=== PATIENT | male | born 1985 | race Caucasian/White ===

== ENCOUNTER 2017-03-10 22:55 | Emergency (ER) | payer SELFPAY ==
--- NOTE | 2017-03-10 23:35 | ER NURSING DOCUMENTATION ---
Nurse's Notes [facility] ([place], [place]) Name:Mal Diaz Age:31 yrs Sex:Male :1985 Arrival Date:03/10/2017 Time:22:53 Bed2 Private MD:No PCP, Identified Diagnosis:Conjunctival Foreign Body Presentation: 03/10 22:53 Transition of care: patient was not received from another setting of care. nf 22:53 Acuity: GALINDO 4 nf 22:53 Method Of Arrival: Private Vehicle nf 22:55 Presenting complaint: Patient states: pt states he got glass in right eye while at work bw2 just prior to arrival. 22:59 Notified ED Physician of patient's arrival and CC Dr. Valiente notified. bw2 Triage Assessment: 22:57 General: Appears in no apparent distress. Pain: Complains of pain in right eye. EENT: bw2 Eyes with foreign body noted in right upper eyelid. 23:33 General: Behavior is appropriate for age. bw2 Historical: - Allergies: No known drug Allergies; - Tetanus: unknown. - Ebola Screening: : Patient negative for fever greater than or equal to 101.5 degrees Fahrenheit, and additional compatible Ebola Virus Disease symptoms. Patient denies exposure to infectious person. Patient denies travel to an Ebola-affected area in the 21 days before illness onset. . - Immunization history: Flu Vaccine None. - Social history: Smoking status: Patient uses tobacco products, current every day smoker. Screenin:59 Infectious Disease Risk None. Abuse screen: Denies threats or abuse. Nutritional bw2 screening: No deficits noted. Assessment: 22:59 See Triage Assessment done by same RN. bw2 Vital Signs: 22:58 BP 158 / 72; Pulse 99; Resp 18; Temp 97.8(O); Pulse Ox 97% on R/A; Weight 77.11 kg; bw2 Height 5 ft. 10 in. (177.80 cm); Pain 6/10; 22:58 Body Mass Index 24.39 (77.11 kg, 177.80 cm) bw2 ED Course: 22:53 Patient arrived in ED. em3 22:53 Triage completed. nf 22:55 No PCP, Identified is Private Physician. em3 22:55 Ivonne Noriega is Primary Nurse. bw2 22:59 Valuables Remains with patient. bw2 23:10 Bonifacio Valiente MD is Attending Physician. co 23:28 Galen Arnold MD is Referral Physician. co 03/11 00:31 Primary Nurse role handed off by Ivonne Noriega co Administered Medications: 03/10 23:03 Drug: Alcaine Drops 0.5 % 1 drops; Route: Ophthalmic; Site: right eye; 23:06 Drug: Adacel 0.5 ml; {Paralegal Specialist: [facility]. Exp: 12/23/2039. Lot #: [id number]. } bw2 Route: IM; Site: left deltoid; 03/11 00:32 Drug: Fluorescein Strip 1 strip; Route: Ophthalmic; Site: right eye; co Outcome: 03/10 23:28 Discharge ordered by MD. co 23:33 Discharged to home ambulatory, with significant other. [facility] 23:33 Condition: good 23:33 Discharge Assessment: Patient awake, alert and oriented x 3. No cognitive and/or functional deficits noted. Patient verbalized understanding of disposition instructions. 23:33 Discharge instructions given to patient, Instructed on discharge instructions, follow up and referral plans. 23:34 Patient left the ED. [facility] 03/11 00:32 Patient left the ED. co Signatures: Anna Huber RN RN Bonifacio Ware MD MD co Reynold Costa 3 Ivonne Noriega 2
--- NOTE | 2017-03-10 23:35 | ER PHYSICIAN DOCUMENTATION ---
Physician Documentation [facility] Name:Mal Diaz Age:31 yrs Sex:Male :1985 Arrival Date:03/10/2017 Time:22:53 Bed2 Private MD:No PCP, Identified ED Bonifacio Eagle Disposition: 03/10/17 23:28 Discharged to Home/Self Care. Impression: Conjunctival Foreign Body. - Condition is Good. - Discharge Instructions: CONJUNCTIVAL FOREIGN BODY, Resolved. - Medical Reconciliation form form. - Follow up: Galen Arnold MD; When: As needed; Reason: Worsening of condition. - Problem is new. - Symptoms have improved. HPI: 03/10 23:25 This 31 yrs old Male presents to ER via Private Vehicle with complaints of sc Foreign Body In Eye. 23:25 The patient is experiencing foreign body sensation, The patient sustained glass chips sc from shelf at work. Onset: The symptom(s)/episode began/occurred just prior to arrival. Duration: the symptoms are continuous. Associated signs and symptoms: Pertinent positives: None. Historical: - Allergies: No known drug Allergies; - Tetanus: unknown. - Ebola Screening: : Patient negative for fever greater than or equal to 101.5 degrees Fahrenheit, and additional compatible Ebola Virus Disease symptoms. Patient denies exposure to infectious person. Patient denies travel to an Ebola-affected area in the 21 days before illness onset. . - Immunization history: Flu Vaccine None. - Social history: Smoking status: Patient uses tobacco products, current every day smoker. ROS: 23:26 Constitutional: Negative for fever, chills, and weight loss. sc Cardiovascular: Negative for chest pain, palpitations, and edema. Back: Negative for injury and pain. Skin: Negative for injury, rash, and discoloration. 23:26 Neuro: Negative for headache, weakness, numbness, tingling, and seizure. sc 23:26 Eyes: Positive for foreign body sensation, Negative for blurry vision, discharge, itching, photophobia. Exam: 23:26 Visual Acuity: I have reviewed the nursing documentation. Visual acuity is within pr normal limits. Constitutional: This is a well developed, well nourished patient who is awake, alert, and in no acute distress. Head/Face: Normocephalic, atraumatic. Neck: Trachea midline, no thyromegaly or masses palpated, and no cervical lymphadenopathy. Supple, full range of motion without nuchal rigidity, or vertebral point tenderness. No meningismus. 23:26 Skin: Warm, dry with normal turgor. Normal color with no rashes, no lesions, and no evidence of cellulitis. 23:26 Eyes: Periorbital structures: appear normal, Pupils: equal, round, and reactive to light and accomodation, Extraocular movements: intact throughout, Conjunctiva: Corneas: no acute changes, a fluorescein strip employed to appreciate the findings. Vital Signs: 22:58 BP 158 / 72; Pulse 99; Resp 18; Temp 97.8(O); Pulse Ox 97% on R/A; Weight 77.11 kg; bw2 Height 5 ft. 10 in. (177.80 cm); Pain 6/10; 22:58 Body Mass Index 24.39 (77.11 kg, 177.80 cm) bw2 Procedures: 23:27 Foreign Body Removal: a fragment of glass, from the right by normal saline irrigation, sc The patient tolerated the removal well. MDM: 23:10 Patient medically screened. sc 23:27 Differential diagnosis: Foreign body in right eye. Data reviewed: vital signs, nurses sc notes, and as a result, I will discharge patient. Counseling: I had a detailed discussion with the patient and/or guardian regarding: the historical points, exam findings, and any diagnostic results supporting the discharge/admit diagnosis, the need for outpatient follow up, to return to the emergency department if symptoms worsen or persist or if there are any questions or concerns that arise at home. Dispensed Medications: 23:03 Drug: Alcaine Drops 0.5 % 1 drops; Route: Ophthalmic; Site: right eye; 23:06 Drug: Adacel 0.5 ml; {Loan Broker: [employer]. Exp: 12/23/2039. Lot #: [id number]. } bw2 Route: IM; Site: left deltoid; 03/11 00:32 Drug: Fluorescein Strip 1 strip; Route: Ophthalmic; Site: right eye; pr Signatures: Anna Huber RN RN Bonifacio Valiente MD MD pr Nalini Noriegast. [facility]
== END 2017-03-11 00:33 | disposition home or self-care (01) ==
LOC: ER 22:55
DX: T15.11XA Foreign body in conjunctival sac, right eye, initial encounter (principal)
CPT/HCPCS: 90471; 99283